=== PATIENT | female | born 1985 | race Two or more races ===

== ENCOUNTER 2017-08-21 20:08 | Inpatient (IN) | payer OTHER ==
[2017-08-21] MEDS ORDERED: ELECTROLYTE-148 SOLN 500 ML IV ONE (20:15)
[2017-08-21] MEDS ORDERED: AMPICILLIN - 2 GM in SODIUM CHLORIDE 100 ML IVPB ONE (20:30)
[2017-08-21 20:39] VITALS: BMI 27.4
[2017-08-21 20:41] LABS: BASOPHIL 0.1 % (0-2.0); MCH 27.2 pg (25.7-33.7); MCHC 33.3 g/dl (32.0-36.0); MEAN CELL VOLUME 81.7 fl (80-96); MEAN PLT VOLUME 11.4 fl (7.5-11.1); NEUTROPHILS 83.7 % (42.8-82.8); PLATELET COUNT 125 K/MM3 (134-434); RDW 14.4 % (11.6-15.6); WHITE BLOOD COUNT 12.5 K/mm3 (4.0-10.0)
[2017-08-21] MEDS ORDERED: TUBERCULIN PPD 5 TU/0.1ML SYRINGE (IN PATIENT USE ONLY) ID ONE (21:00)
[2017-08-21 21:02] LABS: INR 0.94 (0.82-1.09); PROTHROMBIN TIME (PATIENT) 10.6 SEC (9.98-11.88)
[2017-08-21 21:05] LABS: ACTIVATED PTT 26.3 SECONDS (26.9-34.4)
[2017-08-21 21:09] LABS: ANION GAP 12 (8-16); CALCIUM 8.3 mg/dL (8.5-10.1); CO2 22 mmol/L (21-32); CREATININE 0.6 mg/dL (0.55-1.02); GLUCOSE,RANDOM 83 mg/dL (74-106)
[2017-08-21] MEDS ORDERED: FENTANYL/BUPIVACAINE/NS/PF - PCEA - 50 ML DISP.SYRIN EP SCH ×2 (21:10→21:47)
[2017-08-21] MEDS ORDERED: ELECTROLYTE-148 SOLN 1,000 ML IV SCH ×2 (21:15→21:30)
--- NOTE | 2017-08-21 21:46 | HP ---
Past Medical History - Admission Chief Complaint: Pain in labor History of Present Illness: 32 yo @ 39 weeks gestation with prior presents c/o labor pain. She desires . She denies any vaginal bleeding nor ROM. History Source: Patient Limitations to Obtaining History: No Limitations - Past Medical History ...: 2 ...Para: 1 ...Term: 1 ...: 1 ...Spon : 0 ...Induced : 0 ...Multiple Gestation: 0 ...EDC by [facility]: 08/26/17 - Past Surgical History Past Surgical History: Yes: Hx Myomectomy: No Hx Transabdominal Cerclage: No - Smoking History Smoking history: Never smoked Have you smoked in the past 12 months: No Aproximately how many cigarettes per day: 0 - Alcohol/Substance Use Hx Alcohol Use: No History of Substance Use: reports: None - Social History Usual Living Arrangement: Yes: With Spouse History of Recent Travel: No Home Medications - Allergies Allergies/Adverse Reactions: Allergies Allergy/AdvReac Type Severity Reaction Status Date / Time No Known Allergies Allergy Verified 07/01/13 12:33 - Home Medications Home Medications: Ambulatory Orders Vitamins (Sjr) - 1 tab PO DAILY 08/21/17 Family Disease History - Family Disease History Family History: Unremarkable Review of Systems - Review of Systems Constitutional: reports: No Symptoms Eyes: reports: No Symptoms HENT: reports: No Symptoms Neck: reports: No Symptoms Cardiovascular: reports: No Symptoms Respiratory: reports: No Symptoms Gastrointestinal: reports: No Symptoms Genitourinary: reports: Pain Breasts: reports: No Symptoms Reported Musculoskeletal: reports: No Symptoms Integumentary: reports: No Symptoms Neurological: reports: No Symptoms Endocrine: reports: No Symptoms Hematology/Lymphatic: reports: No Symptoms Psychiatric: reports: No Symptoms Pain Intensity: 7 Physical Exam - Maternity Vital Signs: Vital Signs Temperature 97.8 F 08/21/17 20:15 Pulse Rate 77 08/21/17 20:15 Respiratory Rate 20 08/21/17 20:15 Blood Pressure 125/79 08/21/17 20:15 O2 Sat by Pulse Oximetry (%) Constitutional: Yes: Well Nourished Eyes: Yes: Conjunctiva Clear HENT: Yes: Atraumatic Neck: Yes: Supple Cardiovascular: Yes: Regular Rate and Rhythm Lungs: Clear to auscultation Breast(s): Yes: WNL - Abdominal Exam/OB Number of Fetuses: Single Presentation: Vertex Contractions: Yes Regularity: Irregular Intensity: Moderate - Vaginal Exam/OB Vaginal Bleediing: No Speculum Exam: No Dilatation (cm): 2 Effacement (%): 80 Amniotic Membrane Status: Intact Station: -2 - Physical Exam ...Motor Strength: WNL Psychiatric: Yes: Alert, Oriented - Labs Lab Results: CBC, BMP 08/21/17 20:25 08/21/17 20:25 Problem List - Problems (1) Previous section Code(s): Z98.891 - HISTORY OF UTERINE SCAR FROM PREVIOUS SURGERY Assessment/Plan Previous in labor Admit for as requested by patient Epidural anesthesia Anticipate
--- NOTE | 2017-08-21 21:53 | PN ---
Progress Note (short form) - Note Progress Note: Patient is status post epidural anesthesia. She still c/o mild discomfort. FHR : Reassuring [place] : + irregular contractions VE : /-1 AROM ( light Mec ) A/P : Previous in labor Continue monitoring Anticipate Problem List - Problems (1) Previous section Code(s): Z98.891 - HISTORY OF UTERINE SCAR FROM PREVIOUS SURGERY
[2017-08-21 22:27] LABS: HIV 1 & 2 AB NEGATIVE; HIV 1 AGp24 NEGATIVE
[2017-08-22] MEDS: AMPICILLIN - 1 GM in SODIUM CHLORIDE 100 ML IVPB SCH ×3 (00:15→08:40)
[2017-08-22] MEDS: ACETAMINOPHEN 325 MG TABLET (FP) PO PRN ×3 (08:25→23:59)
[2017-08-22] MEDS: IBUPROFEN 600 MG TABLET (FP) PO PRN ×3 (08:25→23:58)
[2017-08-22] MEDS ORDERED: WITCH HAZEL 50% (TUCKS) 40 PAD/JAR PAD TP PRN (09:00)
[2017-08-22] MEDS ORDERED: BISACODYL 10 MG SUPP.RECT RC PRN (09:00)
[2017-08-22] MEDS ORDERED: METHYLERGONOVINE MALEATE 0.2 MG/1 ML AMP IM PRN (09:00)
[2017-08-22] MEDS ORDERED: BENZOCAINE 28 GM HEMORRHOIDAL OINTMENT TP PRN (09:00)
[2017-08-22] MEDS ORDERED: BENZOCAINE 20% 57 GM BOTTLE TP PRN (09:00)
[2017-08-22] MEDS ORDERED: OXYTOCIN 20 UNITS in 0.9% NS 20 UNIT/1,000 ML INFUS.BAG IV SCH (09:15)
--- NOTE | 2017-08-22 09:34 | PN ---
Delivery - Delivery Vaginal Delivery: V-David Type of Anesthesia: Epidural Episiotomy/Laceration: Midline EBL (cc): 300 Delivery, Single - Stages of Labor Date 1st Stage Initiatied: 08/21/17 Time 1st Stage Initiated: 12:00 Date 2nd Stage Initiated: 08/22/17 Time 2nd Stage Initiated: 06:00 Date of Delivery: 08/22/17 Time of Delivery: 07:13 Time Placenta Delivered: 07:15 - Condition of Infant Director Process Improvement/Er Medical Technician Present: Yes Name: Fiona George Gender: Male Weight: 7 lb 11 oz Position: Right, OT Total Hours ROM (Hrs/Mins): 9 hours 45 minutes - 1 Minute Total Score: 9 5 Minutes Total Score: 9 - Feeding Plan Initial Plan: Elected not to breastfeed exclusively throughout hospitalization Remarks - Remarks Remarks: Vaginal after delivery of a live infant boy over midline episiotomy. Nose / Oropharynx suctioned @ perineum. Cord clamped and cut. Placenta expelled spontaneously intact. Episiotomy repaired in layers with 2.0 Chromic and 2.0 Biosyn.
[2017-08-22] MEDS: PRENATAL VITAMINS W/ FOLIC ACID TABLET (FP) PO SCH (10:19)
[2017-08-22] MEDS: SENNOSIDES/DOCUSATE COMBO (SENNA PLUS) TABLET (UD) PO PRN (23:59)
[2017-08-23 08:43] LABS: BASOPHIL 0.2 % (0-2.0); EOSINOPHIL 0.2 % (0-4.5); MCH 26.8 pg (25.7-33.7); MCHC 32.1 g/dl (32.0-36.0); MEAN CELL VOLUME 83.3 fl (80-96); PLATELET COUNT 108 K/MM3 (134-434); RDW 14.8 % (11.6-15.6); WHITE BLOOD COUNT 13.4 K/mm3 (4.0-10.0)
[2017-08-23] MEDS: IBUPROFEN 600 MG TABLET (FP) PO PRN ×3 (08:44→20:46)
[2017-08-23] MEDS: ACETAMINOPHEN 325 MG TABLET (FP) PO PRN ×3 (08:45→20:44)
[2017-08-23] MEDS: PRENATAL VITAMINS W/ FOLIC ACID TABLET (FP) PO SCH (09:57)
[2017-08-23] MEDS ORDERED: FLU VACC QS2017-18 36MOS UP/PF 60 MCG/0.5 ML SYRINGE IM ONE (10:00)
[2017-08-23] MEDS: SENNOSIDES/DOCUSATE COMBO (SENNA PLUS) TABLET (UD) PO PRN (20:44)
--- NOTE | 2017-08-24 06:52 | PN ---
Post Note - Post Date of Delivery: 08/22/17 Vital Signs: Vital Signs - 24 hr 08/23/17 08/23/17 07:30 22:00 Temperature 98.8 F 98.0 F Pulse Rate 84 93 H Respiratory 20 20 Rate Blood Pressure 127/85 124/56 Labs: Laboratory Results - last 24 hr 08/23/17 07:45 WBC 13.4 H RBC 3.19 L D Hgb 8.5 L D Hct 26.6 L D MCV 83.3 MCH 26.8 MCHC 32.1 RDW 14.8 Plt Count 108 L MPV 11.0 Neutrophils % 79.0 Lymphocytes % 15.8 D Monocytes % 4.8 Eosinophils % 0.2 D Basophils % 0.2 - Subjective Subjective: No Complaints - Objective Breast: Not engorged Abdomen: Soft, Non-tender Uterus: Fundus firm, Non-tender Vagina: Scant lochia Extremities: Non-tender - Assessment/Plan (1) Previous section Assessment: S/P Normal Plan: Routine Care
[2017-08-24] MEDS: ACETAMINOPHEN 325 MG TABLET (FP) PO PRN (08:27)
[2017-08-24] MEDS: IBUPROFEN 600 MG TABLET (FP) PO PRN (08:28)
[2017-08-24] MEDS: PRENATAL VITAMINS W/ FOLIC ACID TABLET (FP) PO SCH (09:41)
[2017-08-24 11:49] VITALS: BP 134/80; PULSE 99; TEMP 98.2
== END 2017-08-24 11:15 | disposition home or self-care (01) | DRG 560 ==
LOC: JDEL 20:08 → JLDR 20:15 → J3W 08-22 08:35
PROVIDERS: ADMIT Obstetrics & Gynecology; ATTEND Obstetrics & Gynecology
PROC: 10E0XZZ Delivery of Products of Conception, External Approach (ICD-10-PCS; principal; 2017-08-22)
PROC: 0W8NXZZ Division of Female Perineum, External Approach (ICD-10-PCS; 2017-08-22)
DX: O34.211 Maternal care for low transverse scar from previous cesarean delivery (principal); Z3A.39 39 weeks gestation of pregnancy; Z37.0 Single live birth
CPT/HCPCS: 36415; 59409; 80048; 85025; 85610; 85730; 86593; 86850; 86900; 86901; 87389; 90686

== ENCOUNTER 2018-06-03 17:49 | Inpatient (IN) | payer OTHER ==
[2018-06-03] MEDS ORDERED: SODIUM CHLORIDE 1,000 ML IV STA (19:02)
--- NOTE | 2018-06-03 19:13 | PDOC ---
Attending Attestation - HPI HPI: 06/03/18 19:41 The patient is a 33 year old female with a significant PMH of kidney stones who presents to the emergency department from urgent care with concern for pyelonephritis. The patient reports that she has been experiencing fever, chills , headache and abdominal pain for about 3 days. The patient states that he pain is relieved momentarily with ibuprofen but increases in severity once the medication wears off.she endorses 2 episodes of vomiting last night. The patient denies any other symptoms. She denies any nausea, vomit, diarrhea, constipation or urinary symptoms. She denies any chest pain, shortness of breath , and dizziness. The patient denies any other complaints. PCP: Documentation prepared by Chary Peraza, acting as medical coder for Kassandra Crockett MD. - Physicial Exam PE: 06/03/18 20:53 GENERAL: Awake, alert, and fully oriented, in no acute distress HEAD: No signs of trauma EYES: PERRLA, EOMI, sclera anicteric, conjunctiva clear ENT: Auricles normal inspection, hearing grossly normal, nares patent, oropharynx clear without exudates. Moist mucosa NECK: Normal ROM, supple, no lymphadenopathy, JVD, or masses LUNGS: Breath sounds equal, clear to auscultation bilaterally. No wheezes, and no crackles HEART:(+)afebrile. Regular rhythm, normal S1 and S2, no murmurs, rubs or gallops ABDOMEN:(+)gassy bowel sounds diffusely. Soft, nontender. No guarding, no rebound. No masses EXTREMITIES: Normal range of motion, no edema. No clubbing or cyanosis. No cords, erythema, or tenderness NEUROLOGICAL: Cranial nerves II through XII grossly intact. Normal speech, normal gait SKIN: Warm, Dry, normal turgor, no rashes or lesions noted. <Chary Peraza - Last Filed: 06/03/18 20:53> - Resident Resident Name: Lynda Gandhi - ED Attending Attestation I have performed the following: I have examined & evaluated the patient, The case was reviewed & discussed with the resident, I agree w/resident's findings & plan - Medical Decision Making 06/03/18 19:19 Pt is tachycardic and hypotensive; she will be hydrated and treated with rocephin and admitted for hydroureteronephrosis. PMD is Dr. Garcias; she will be admitted to the hospitalist. 06/03/18 19:42 CBC is normal. 83% neutrophil count. Chem and UA pending. 06/03/18 20:45 Pt's chem demonstrates elevated LFTs. <Kassandra Crockett - Last Filed: 06/03/18 20:57> Heart Score/ECG Review - ECG Intrepretation Rhythm: Regular Rhythm - Patterson Patterson: Normal - P and AR Delta Wave(s) Present: No WPW: No - ST and T Early Repolarization: No Non Specific ST-T Wave changes: No - ECG Impressions Normal ECG: Yes Non-specific ST Elevation: No Ischemic Changes: No Bradycardia: No Tachycardia: Sinus <Kassandra Crockett - Last Filed: 06/03/18 20:57>
[2018-06-03] MEDS ORDERED: KETOROLAC TROMETHAMINE 30 MG/1 ML VIAL IVPUSH ONE (19:17)
[2018-06-03] MEDS ORDERED: CEFTRIAXONE 1,000 MG in DEXTROSE 5%-WATER - 50 ML IVPB ONE (19:17)
--- NOTE | 2018-06-03 19:17 | PDOC ---
History of Present Illness - History of Present Illness Initial Comments: Zahra Kay is an otherwise healthy 33yo woman who presents to the ED today from urgent care with likely right pyelonephritis and b/l kidney stones. Ms Kay reports that starting on Tuesday, she has had shivering chills and b/l , R>L abdominal pain. Initially she assumed that the pain was related to menstrual cramps, and it would resolve with ibuprofen. However, the pain returned every time the ibuprofen started to wear off. She additionally had continued shaking chills. Ms Kay decided to be seen at urgent care as she does not have a PMD at this time. Workup at urgent care included labs pertinent for WBC 9.2 with 84.4% PMNs, AST 98, ALT 168, Cr normal at 0.6. UA with moderate blood, urobilinogen 0.2, nitrite positive, positive leuk esterase. A CT abd/pelvis was remarkable for multiple small b/l non-obstructing renal stones, right kidney swelling with surrounding fat stranding, fluid in the perinephric fat, mild hydroureteronephrosis. The left kidney was noted to have small non-obstructing stones but no other abnormalities. Ms Kay denies any urinary symptoms or changes in bowel habits. She reports two episodes of vomiting since Tuesday but no difficulty taking PO. Her fever was up to 103 at home but would improve with ibuprofen. Otherwise, she has been feeling well prior to Tuesday. <Lynda Gandhi - Last Filed: 06/03/18 20:17> <Kassandra Crockett - Last Filed: 06/03/18 20:23> - General Chief Complaint: Revisit, Lab Variance Stated Complaint: Revisit, Lab Variance Past History - Past Medical History Asthma: No Cancer: No Cardiac Disorders: No COPD: No Diabetes: No HTN: Yes (preeclampsia with 2012 ) Seizures: No Thyroid Disease: No - Suicide/Smoking/Psychosocial Hx Smoking Status: No Smoking History: Never smoked Have you smoked in the past 12 months: No Number of Cigarettes Smoked Daily: 0 Information on smoking cessation initiated: No Hx Alcohol Use: No Drug/Substance Use Hx: No Substance Use Type: None Hx Substance Use Treatment: No <Lynda Gandhi - Last Filed: 06/03/18 20:17> <Kassandra Crockett - Last Filed: 06/03/18 20:23> - Past Medical History Allergies/Adverse Reactions: Allergies Allergy/AdvReac Type Severity Reaction Status Date / Time No Known Allergies Allergy Verified 06/03/18 18:12 Home Medications: Ambulatory Orders NK [No Known Home Medication] 06/03/18 Review of Systems - Review of Systems Comments:: General: +Fevers/chills. No weight or appetite change, no malaise HEENT: No changes in vision, no changes in hearing, no congestion, no sore throat CV: No chest pain, no palpitations, no LE edema Pulm: No SOB, no cough, no wheezing GI: +Vomiting. No change in bowel habits, no melena : See HPI Musc: +b/l back pain (CVA). No joint swelling, no recent injury Skin: No rash, no lesions, no erythema Endo: No excessive thirst, no heat/cold intolerance Heme: No unusual bruising or bleeding, no swollen glands Neuro: No syncope, no numbness/tingling, no focal weakness Vasc: No claudication Psych: No recent change in mood, no SI or HI <Lynda Gandhi - Last Filed: 06/03/18 20:17> *Physical Exam - Vital Signs Last Vital Signs Temp Pulse Resp BP Pulse Ox 98.9 F 118 H 20 96/76 100 06/03/18 18:13 06/03/18 18:13 06/03/18 18:13 06/03/18 18:13 06/03/18 18:13 - Physical Exam Comments: General: Comfortable, no acute distress HEENT: PERRL, EOMI, MMM, voice normal, normal neck ROM, no LAD Cards: Tachycardic. No murmur appreciated Pulm: Comfortable on room air, clear to auscultation bilaterally Abd: Mild low abdominal tenderness. Soft. Nondistended. No rebound or guarding. : B/L mild CVA tenderness, R>L Ext: Atraumatic. No LE edema. ROM intact. Strength 5/5 and equal bilaterally Vasc: Extremities WWP. Palpable radial and pedal pulses bilaterally Neuro: A&Ox3, CN grossly intact, normal speech, motor/sensory grossly intact and symmetric Psych: Mood appropriate to situation <Lynda Gandhi - Last Filed: 06/03/18 20:17> - Vital Signs Last Vital Signs Temp Pulse Resp BP Pulse Ox 98.9 F 118 H 20 96/76 100 06/03/18 18:13 06/03/18 18:13 06/03/18 18:13 06/03/18 18:13 06/03/18 18:13 <CrockettKassandra - Last Filed: 06/03/18 20:23> ED Treatment Course - LABORATORY CBC & Chemistry Diagram: 06/03/18 19:00 06/03/18 19:00 - RADIOLOGY Radiology Studies Ordered: Category Date Time Status CHEST X-RAY PORTABLE* [RAD] Stat Radiology 06/03/18 19:02 Ordered <Lynda Gandhi - Last Filed: 06/03/18 20:17> - LABORATORY CBC & Chemistry Diagram: 06/03/18 19:00 06/03/18 19:00 - ADDITIONAL ORDERS Additional order review: Laboratory Results 06/03/18 06/03/18 06/03/18 19:00 19:00 19:00 Sodium 136 Potassium 3.7 Chloride 100 Carbon Dioxide 25 Anion Gap 11 BUN 7 Creatinine 0.5 L Creat Clearance w eGFR > 60 Random Glucose 99 Lactic Acid 0.9 Calcium 8.4 L Total Bilirubin 0.7 AST 87 H ALT 187 H Alkaline Phosphatase 154 H Total Protein 7.8 Albumin 3.6 Urine Color Urine Appearance Urine pH Ur Specific [place] Urine Protein Urine Glucose (UA) Urine Ketones Urine Blood Urine Nitrite Urine Bilirubin Urine Urobilinogen Ur Leukocyte Esterase Urine WBC (Auto) Urine RBC (Auto) Ur Epithelial Cells Urine Bacteria Hyaline Casts Urine Mucus Urine HCG, Qual Negative 06/03/18 19:00 Sodium Potassium Chloride Carbon Dioxide Anion Gap BUN Creatinine Creat Clearance w eGFR Random Glucose Lactic Acid Calcium Total Bilirubin AST ALT Alkaline Phosphatase Total Protein Albumin Urine Color Anitha Urine Appearance Clear Urine pH 5.0 Ur Specific [place] 1.012 Urine Protein 1+ H Urine Glucose (UA) Negative Urine Ketones 1+ H Urine Blood 2+ H Urine Nitrite Negative Urine Bilirubin Negative Urine Urobilinogen Negative Ur Leukocyte Esterase 1+ H Urine WBC (Auto) 30 Urine RBC (Auto) 12 Ur Epithelial Cells Rare Urine Bacteria Rare Hyaline Casts 5 Urine Mucus Rare Urine HCG, Qual 06/03/18 19:00 RBC 4.54 MCV 82.5 MCHC 33.9 RDW 13.3 D MPV 9.7 D Neutrophils % 83.9 H Lymphocytes % 8.2 D Monocytes % 7.7 Eosinophils % 0.1 Basophils % 0.1 - Medications Given in the ED: ED Medications Discontinued Medications Generic Name Dose Route Start Last Admin Trade Name Charo PRN Reason Stop Dose Admin Al Hydroxide/Mg Hydroxide 30 ml 06/03/18 19:49 06/03/18 19:58 Mylanta Oral Suspension - PO 06/03/18 19:50 30 ml ONCE ONE Administration Sodium Chloride 1,000 mls @ 1,000 mls/hr 06/03/18 19:02 06/03/18 19:18 Normal Saline - IV 06/03/18 20:01 1,000 mls/hr ASDIR STA Administration Ceftriaxone Sodium 1,000 mg/ 50 mls @ 100 mls/hr 06/03/18 19:17 06/03/18 19: 22 Dextrose IVPB 06/03/18 19:46 100 mls/hr ONCE ONE Administration Famotidine/Sodium Chloride 20 mg in 50 mls @ 100 mls/hr 06/03/18 19:52 19:53 Pepcid 20 Mg Premixed Ivpb - IVPB 06/03/18 20:21 100 mls/hr ONCE ONE Administration Ketorolac Tromethamine 30 mg 06/03/18 19:17 06/03/18 19:22 Toradol Injection - IVPUSH 06/03/18 19:18 30 mg ONCE ONE Administration Ondansetron HCl 4 mg 06/03/18 19:49 06/03/18 19:58 Zofran Injection IVPB 06/03/18 19:50 Not Given ONCE ONE <Kassandra Crockett - Last Filed: 06/03/18 20:23> Medical Decision Making - Medical Decision Making 06/03/18 19:49 Zahra Kay is an otherwise healthy 33yo woman who presents from urgent care with 4 days of fever, shaking chills, b/l abdominal and flank pain. She was seen at urgent care where workup included a UA indicaitng likely UTI as well as a CT abd/pelvis that showed b/l nonobstructing kidney stones, right hydrouretonephrosis with perinephric fat stranding and fluid. - Blood cultures, new UA, urine cultures, CBC, CMP sent - No new imaging; Ms Kay brought her CT from earlier today on a disc; needs to be uploaded - IFV, ceftriaxone, toradol ordered - Discussed with hospitalist; will need admission for IV abx Discussed with Dr Crockett. <Lynda Gandhi - Last Filed: 06/03/18 20:17> *DC/Admit/Observation/Transfer - Discharge Dispostion Decision to Admit order: Yes <Lynda Gandhi - Last Filed: 06/03/18 20:17> <Kassandar Crockett - Last Filed: 06/03/18 20:23> Diagnosis at time of Disposition: Pyelonephritis - Referrals Referrals: Jarad Garcias MD [Primary Care Provider] - - Patient Instructions - Post Discharge Activity
[2018-06-03] MEDS ORDERED: KETOROLAC TROMETHAMINE 30 MG/1 ML VIAL ONE (19:19)
[2018-06-03] MEDS ORDERED: CEFTRIAXONE 1 GM/50 ML BAG ONE (19:19)
[2018-06-03 19:27] LABS: BASO % 0.1 % (0-2.0); EOS % 0.1 % (0-4.5); HEMATOCRIT 37.4 % (32.4-45.2); HEMOGLOBIN 12.7 GM/dL (10.7-15.3); LYMPH % 8.2 % (8-40); MCHC 33.9 g/dl (32.0-36.0); MEAN CELL VOLUME 82.5 fl (80-96); MEAN PLT VOLUME 9.7 fl (7.5-11.1); MONO % 7.7 % (3.8-10.2); NEUT % 83.9 % (42.8-82.8); PLATELET COUNT 155 K/MM3 (134-434); RBC 4.54 M/mm3 (3.60-5.2); RDW 13.3 % (11.6-15.6); WHITE BLOOD COUNT 9.1 K/mm3 (4.0-10.0)
[2018-06-03] MEDS ORDERED: MAG HYDROX/AL HYDROX/SIMETH 30 ML UNIT-DOSE CUP PO ONE (19:49)
[2018-06-03] MEDS ORDERED: ONDANSETRON 4 MG/2 ML VIAL IVPB ONE (19:49)
[2018-06-03 19:50] LABS: ALBUMIN 3.6 g/dl (3.4-5.0); ALK PHOS 154 U/L (45-117); ANION GAP 11 MMOL/L (8-16); BILIRUBIN,TOTAL 0.7 mg/dL (0.2-1.0); BLOOD UREA NITROGEN 7 mg/dL (7-18); CALCIUM 8.4 mg/dL (8.5-10.1); CHLORIDE 100 mmol/L (98-107); CO2 25 mmol/L (21-32); CREATININE 0.5 mg/dL (0.55-1.02); GLUCOSE,RANDOM 99 mg/dL (74-106); POTASSIUM 3.7 mmol/L (3.5-5.1); SGOT/AST 87 U/L (15-37); SGPT/ALT 187 U/L (12-78); SODIUM 136 mmol/L (136-145); TOT PROT 7.8 g/dl (6.4-8.2)
[2018-06-03] MEDS ORDERED: FAMOTIDINE 20 MG/50 ML IVPB 20 MG/50 ML MG IVPB ONE ×2 (19:52→20:00)
[2018-06-03] MEDS ORDERED: ONDANSETRON 4 MG/2 ML VIAL ONE (19:53)
[2018-06-03] MEDS ORDERED: MAG HYDROX/AL HYDROX/SIMETH 30 ML UNIT-DOSE CUP ONE (19:53)
[2018-06-03 19:56] LABS: URINE APPEARANCE CLEAR; URINE BILIRUBIN NEGATIVE (<2.0 mg/dL); URINE COLOR AMBER; URINE GLUCOSE (UA) NEGATIVE (NEGATIVE); URINE KETONE 1+ (NEGATIVE); URINE NITRITE NEGATIVE (NEGATIVE); URINE UROBILINOGEN NEGATIVE mg/dL (0.2-1.0)
[2018-06-03 20:03] LABS: URINE LEUK ESTERASE 1+ (NEGATIVE); URINE PROTEIN 1+ (NEGATIVE)
[2018-06-03 20:11] LABS: EPI CELLS RARE /HPF (FEW); URINE BACTERIA RARE /hpf (NONE SEEN); URINE HYALINE CAST 5 /lpf; URINE MUCUS RARE
--- NOTE | 2018-06-03 20:17 | HP ---
CHIEF COMPLAINT: Fever, Chills, Flank Pain, Abdominal Pain, Vomiting PCP: Dr. Jarad Garcias HISTORY OF PRESENT ILLNESS: This is a 33 year old young woman with a PMHx of: Preeclampsia. Who presents to the ED from an Urgent Care Center with fever, chills, flank/abdominal pain x 4 days. Patient reports that the pain started in her flanks and progressed to her lower abdomen which she attributes to menstrual cramping, that had little relief with Ibuprofen and Acetaminophen. Patient reports that her brother who is a physician prescribed Macrodantin for UTI based on symptoms that the patient described. She reports taking only 2 doses without improvement. Workup at urgent care included labs pertinent for WBC 9.2 with 84.4% PMNs, AST 98, ALT 168, Cr normal at 0.6. UA with moderate blood, urobilinogen 0.2, nitrite positive, positive leuk esterase. A CT abd/pelvis was remarkable for multiple small b/l non-obstructing renal stones, right kidney swelling with surrounding fat stranding, fluid in the perinephric fat, mild hydroureteronephrosis. The left kidney was noted to have small non-obstructing stones but no other abnormalities. Patient denies cough, dizziness, SOB, CP, palpitations, diarrhea , constipation. Patient denies hx of renal calculi. ER course was notable for: (1) UA- +2 blood, +1 hoa esterase, +1 ketones, + 1 protein (2) P- 118 (3) Recent Travel: None PAST MEDICAL HISTORY: Preeclampsia PAST SURGICAL HISTORY: C- section x1 x1 Social History: Smoking: Never Alcohol: None Drugs: None Lives with spouse, children Family History: Father: DM, HTN Allergies No Known Allergies Allergy (Verified 06/03/18 18:12) HOME MEDICATIONS: Home Medications Medication Instructions Recorded NK [No Known Home Medication] 06/03/18 REVIEW OF SYSTEMS CONSTITUTIONAL: fever, chills Absent: diaphoresis, generalized weakness, malaise, loss of appetite, weight change HEENT: Absent: rhinorrhea, nasal congestion, throat pain, throat swelling, difficulty swallowing, mouth swelling, ear pain, eye pain, visual changes CARDIOVASCULAR: Absent: chest pain, syncope, palpitations, irregular heart rate, lightheadedness , peripheral edema RESPIRATORY: Absent: cough, shortness of breath, dyspnea with exertion, orthopnea, wheezing, stridor, hemoptysis GASTROINTESTINAL: abdominal pain, nausea, vomiting Absent: abdominal distension, diarrhea, constipation, melena, hematochezia GENITOURINARY: urgency, flank pain Absent: dysuria, frequency, hesitancy, hematuria, genital pain MUSCULOSKELETAL: Absent: myalgia, arthralgia, joint swelling, back pain, neck pain SKIN: Absent: rash, itching, pallor HEMATOLOGIC/IMMUNOLOGIC: Absent: easy bleeding, easy bruising, lymphadenopathy, frequent infections ENDOCRINE: Absent: unexplained weight gain, unexplained weight loss, heat intolerance, cold intolerance NEUROLOGIC: Absent: headache, focal weakness or paresthesias, dizziness, unsteady gait, seizure, mental status changes, bladder or bowel incontinence PSYCHIATRIC: Absent: anxiety, depression, suicidal or homicidal ideation, hallucinations. PHYSICAL EXAMINATION Vital Signs - 24 hr 06/03/18 18:13 Temperature 98.9 F Pulse Rate 118 H Respiratory 20 Rate Blood Pressure 96/76 O2 Sat by Pulse 100 Oximetry (%) GENERAL: Awake, alert, and fully oriented, in no acute distress. HEAD: Normal with no signs of trauma. EYES: Pupils equal, round and reactive to light, extraocular movements intact, sclera anicteric, conjunctiva clear. No lid lag. EARS, NOSE, THROAT: Ears normal, nares patent, oropharynx clear without exudates. Moist mucous membranes. NECK: Normal range of motion, supple without lymphadenopathy, JVD, or masses. LUNGS: Breath sounds equal, clear to auscultation bilaterally. No wheezes, and no crackles. No accessory muscle use. HEART: Regular rate and rhythm, normal S1 and S2 without murmur, rub or gallop. ABDOMEN: Soft, not distended, normoactive bowel sounds, no guarding, no rebound , no masses. No hepatomegaly or splenomegaly. +lower abdominal tenderness MUSCULOSKELETAL: Normal range of motion at all joints. No bony deformities or tenderness. + bilateral CVA tenderness L>R UPPER EXTREMITIES: 2+ pulses, warm, well-perfused. No cyanosis. No clubbing. No peripheral edema. LOWER EXTREMITIES: 2+ pulses, warm, well-perfused. No calf tenderness. No peripheral edema. NEUROLOGICAL: Cranial nerves II-XII intact. Normal speech. Gait not observed. PSYCHIATRIC: Cooperative. Good eye contact. Appropriate mood and affect. SKIN: Warm, dry, normal turgor, no rashes or lesions noted, normal capillary refill. Laboratory Results - last 24 hr 06/03/18 06/03/18 06/03/18 19:00 19:00 19:00 WBC 9.1 RBC 4.54 Hgb 12.7 Hct 37.4 D MCV 82.5 MCH 28.0 MCHC 33.9 RDW 13.3 D Plt Count 155 D MPV 9.7 D Absolute Neuts (auto) 7.6 Neutrophils % 83.9 H Lymphocytes % 8.2 D Monocytes % 7.7 Eosinophils % 0.1 Basophils % 0.1 Nucleated RBC % 0 Sodium 136 Potassium 3.7 Chloride 100 Carbon Dioxide 25 Anion Gap 11 BUN 7 Creatinine 0.5 L Creat Clearance w eGFR > 60 Random Glucose 99 Lactic Acid Calcium 8.4 L Total Bilirubin 0.7 AST 87 H ALT 187 H Alkaline Phosphatase 154 H Total Protein 7.8 Albumin 3.6 Urine Color Anitha Urine Appearance Clear Urine pH 5.0 Ur Specific [place] 1.012 Urine Protein 1+ H Urine Glucose (UA) Negative Urine Ketones 1+ H Urine Blood 2+ H Urine Nitrite Negative Urine Bilirubin Negative Urine Urobilinogen Negative Ur Leukocyte Esterase 1+ H Urine WBC (Auto) 30 Urine RBC (Auto) 12 Ur Epithelial Cells Rare Urine Bacteria Rare Hyaline Casts 5 Urine Mucus Rare Urine HCG, Qual 06/03/18 06/03/18 19:00 19:00 WBC RBC Hgb Hct MCV MCH MCHC RDW Plt Count MPV Absolute Neuts (auto) Neutrophils % Lymphocytes % Monocytes % Eosinophils % Basophils % Nucleated RBC % Sodium Potassium Chloride Carbon Dioxide Anion Gap BUN Creatinine Creat Clearance w eGFR Random Glucose Lactic Acid 0.9 Calcium Total Bilirubin AST ALT Alkaline Phosphatase Total Protein Albumin Urine Color Urine Appearance Urine pH Ur Specific [place] Urine Protein Urine Glucose (UA) Urine Ketones Urine Blood Urine Nitrite Urine Bilirubin Urine Urobilinogen Ur Leukocyte Esterase Urine WBC (Auto) Urine RBC (Auto) Ur Epithelial Cells Urine Bacteria Hyaline Casts Urine Mucus Urine HCG, Qual Negative ASSESSMENT/PLAN: 33 y/o woman with PMHx of Preeclampsia. Admitted for Acute Pyelonephritis for evaluation of their emergent condition. Plan: FEN D51/2NS@100ml/hr Replete lytes prn NPO DVT ppx OOB SCDs Code Status: Full Code Dispo: Requires Inpatient Care Problem List - Problem (1) Pyelonephritis Assessment/Plan: - CTAP 06/03 at urgent care- multiple small bilateral non-obstructing renal stones , mild hydroureteronephrosis - UA- +2 blood, +1 hoa esterase, +1 ketones - No leukocytosis - Ceftriaxone started in ED, will continue until culture report - Urine culture-pending - Appreciate Urology consult -Will continue IVF - Monitor CBC, BMP - Monitor vitals - Tylenol prn - Toradol prn pain - Strain urine Code(s): N12 - TUBULO-INTERSTITIAL NEPHRITIS, NOT SPCF ACUTE OR CHRONIC (2) Abdominal pain Assessment/Plan: - See above Code(s): R10.9 - UNSPECIFIED ABDOMINAL PAIN Visit type - Emergency Visit Emergency Visit: Yes ED Registration Date: 06/03/18 Care time: The patient presented to the Emergency Department on the above date and was hospitalized for further evaluation of their emergent condition. - New Patient This patient is new to me today: Yes Date on this admission: 06/03/18 - Critical Care Critical Care patient: No Hospitalist Screening - Colonoscopy Questionnaire Colonoscopy Questionnaire: Colonoscopy Questionnaire - Patient: 50 - 75 years old and never had a screening colonoscopy: No History of colon or rectal polyps, or CA: No History of IBD, Crohn's disease or UC: No History of abdominal radiation therapy as a child: No - Relative: 1 with colon or rectal CA, or polyps at age 60 or younger: No Colon or rectal CA diagnosed at age 45 or younger: No Multiple relatives with colon or rectal CA: No - Outcome: Screening Result: Negative Screen
[2018-06-03] MEDS ORDERED: ONDANSETRON 4 MG/2 ML VIAL IVPUSH PRN (20:28)
[2018-06-03] MEDS: DEXTROSE 5%-0.45% SALINE 1,000 ML IV SCH (21:00)
[2018-06-03] MEDS ORDERED: ACETAMINOPHEN 325 MG TABLET (FP) PO ONE (21:51)
[2018-06-03] MEDS ORDERED: ACETAMINOPHEN 325 MG TABLET (FP) ONE (21:53)
[2018-06-03 23:47] VITALS: BMI 22.8
[2018-06-04] MEDS ORDERED: KETOROLAC TROMETHAMINE 15 MG/ML VIAL IVPUSH ONE (01:00)
[2018-06-04] MEDS ORDERED: MELATONIN 5 MG TABLETS PO ONE (01:00)
[2018-06-04] MEDS: DEXTROSE 5%-0.45% SALINE 1,000 ML IV SCH (04:25)
[2018-06-04 06:49] LABS: BASO % 0.1 % (0-2.0); HEMATOCRIT 30.3 % (32.4-45.2); HEMOGLOBIN 10.3 GM/dL (10.7-15.3); LYMPH % 9.2 % (8-40); MCH 27.8 pg (25.7-33.7); MCHC 33.9 g/dl (32.0-36.0); MEAN CELL VOLUME 82.2 fl (80-96); MEAN PLT VOLUME 9.8 fl (7.5-11.1); MONO % 10.5 % (3.8-10.2); NEUT % 80.2 % (42.8-82.8); PLATELET COUNT 102 K/MM3 (134-434); RBC 3.69 M/mm3 (3.60-5.2); RDW 13.3 % (11.6-15.6); WHITE BLOOD COUNT 4.6 K/mm3 (4.0-10.0)
[2018-06-04 07:23] LABS: ANION GAP 9 MMOL/L (8-16); BLOOD UREA NITROGEN 6 mg/dL (7-18); CALCIUM 7.7 mg/dL (8.5-10.1); CHLORIDE 105 mmol/L (98-107); CO2 25 mmol/L (21-32); CREATININE 0.5 mg/dL (0.55-1.02); GLUCOSE,RANDOM 137 mg/dL (74-106); POTASSIUM 3.3 mmol/L (3.5-5.1); SODIUM 139 mmol/L (136-145)
[2018-06-04] MEDS ORDERED: KETOROLAC TROMETHAMINE 15 MG/ML VIAL IVPUSH PRN (08:52)
[2018-06-04] MEDS ORDERED: MORPHINE SULFATE 2 MG/ML VIAL IM ONE (08:55)
[2018-06-04] MEDS ORDERED: DEXTROSE 5%-WATER - 50 ML IVPB ONE (09:17)
[2018-06-04] MEDS ORDERED: cefTRIAXone SODIUM 1 GM VIAL ONE (09:17)
[2018-06-04] MEDS: CEFTRIAXONE 1 GM in DEXTROSE 5%-WATER - 50 ML IVPB SCH (10:33)
--- NOTE | 2018-06-04 10:57 | PN ---
Progress Note, Physician Chief Complaint: pyelonephritis History of Present Illness: C/o right sided abdominal pain - Current Medication List Current Medications: Active Medications Ceftriaxone Sodium 1 gm/ (Dextrose) 50 mls @ 100 mls/hr IVPB DAILY [facility]; Protocol Last Admin: 06/04/18 10:33 Dose: 100 mls/hr Dextrose/Sodium Chloride (Dextrose 5%-Normal Saline+40 Meq Kcl -) 40 meq in 1, 000 mls @ 75 mls/hr IV ASDIR [facility] Potassium Chloride (Potassium Chloride 10 Meq Premix Ivpb -) 10 meq in 100 mls @ 100 mls/hr IVPB Q60M [facility] Stop: 06/04/18 13:44 Ketorolac Tromethamine (Toradol Injection -) 15 mg IVPUSH Q6H PRN PRN Reason: PAIN LEVEL 7 - 10 Stop: 06/09/18 08:51 Last Admin: 06/04/18 08:59 Dose: 15 mg Ondansetron HCl (Zofran Injection) 4 mg IVPUSH Q6H PRN PRN Reason: NAUSEA - Objective Vital Signs: Vital Signs Temperature 100.0 F H 06/04/18 08:32 Pulse Rate 112 H 06/04/18 08:32 Respiratory Rate 20 06/04/18 08:32 Blood Pressure 121/77 06/04/18 08:32 O2 Sat by Pulse Oximetry (%) 100 06/04/18 06:00 Constitutional: Yes: Well Nourished, No Distress, Calm Cardiovascular: Yes: Regular Rate and Rhythm Respiratory: Yes: Regular Gastrointestinal: Yes: Normal Bowel Sounds, Soft Genitourinary: Yes: CVA Tenderness - Right Musculoskeletal: Yes: WNL Extremities: Yes: WNL Edema: No Peripheral Pulses WNL: Yes Neurological: Yes: Alert, Oriented Psychiatric: Yes: Alert, Oriented Labs: CBC, BMP 06/04/18 06:30 06/04/18 06:30 Problem List - Problems (1) Pyelonephritis Assessment/Plan: -IV abx -Urology consult -ID consult -UA/UC pending Code(s): N12 - TUBULO-INTERSTITIAL NEPHRITIS, NOT SPCF ACUTE OR CHRONIC (2) Hypokalemia Assessment/Plan: -Change IVF D5+NS+KCl 20 meq @ 75 cc/hr Code(s): E87.6 - HYPOKALEMIA (3) Elevated liver enzymes Assessment/Plan: GI consult -likely 2/2 to increased usage of NSAID's and acetaminophen in past 4 days due to pain -Avoid NSAIDS -CT abd/pelvis unremarkable for any liver disease -monitor trend Code(s): R74.8 - ABNORMAL LEVELS OF OTHER SERUM ENZYMES Assessment/Plan see problem list
[2018-06-04] MEDS: KCL 10 MEQ IVPB 10 MEQ/100 ML INFUS.BAG IVPB SCH ×3 (11:09→15:26)
[2018-06-04] MEDS: D5-NS + 40 MEQ KCL - 40 MEQ/1,000 ML INFUS.BAG IV SCH (11:09)
[2018-06-04] MEDS ORDERED: morphine SULFATE 4 MG/ML VIAL IVPUSH PRN (11:22)
[2018-06-04] MEDS ORDERED: MORPHINE SULFATE 2 MG/ML VIAL IVPUSH PRN (11:22)
--- NOTE | 2018-06-04 12:01 | CON.GI ---
Consult Consult Specialty:: GI Referred by:: Alondra Teague NP Reason for Consultation:: abnl liver chemistries - History of Present Illness Chief Complaint: 33 y.o. woman with history of recurrent UTIs, presents with r. pyelonephritis and noted to have elevated alk phos, AST, ALT. Pt born in [facility], not tested to her knowledge for hepatitis B. Says she has had normal liver chemistries in the past. She took 2 Macrodantin before coming to hospital. - History Source History Provided By: Patient Limitations to Obtaining History: No Limitations - Past Surgical History Past Surgical History: Yes: - Alcohol/Substance Use Hx Alcohol Use: No History of Substance Use: reports: None - Smoking History Smoking history: Never smoked Have you smoked in the past 12 months: No Aproximately how many cigarettes per day: 0 - Social History History of Recent Travel: No Home Medications - Allergies Allergies/Adverse Reactions: Allergies Allergy/AdvReac Type Severity Reaction Status Date / Time No Known Allergies Allergy Verified 06/03/18 18:12 - Home Medications Home Medications: Ambulatory Orders NK [No Known Home Medication] 06/03/18 Physical Exam-GI Vital Signs: Vital Signs Temperature 100.0 F H 06/04/18 08:32 Pulse Rate 112 H 06/04/18 08:32 Respiratory Rate 20 06/04/18 08:32 Blood Pressure 121/77 06/04/18 08:32 O2 Sat by Pulse Oximetry (%) 100 06/04/18 06:00 Labs: CBC, BMP 06/04/18 06:30 06/04/18 06:30 Imaging - Results Cat Scan: Report Reviewed (outside CT report => perinephric stranding, no obstructing ureteral calculus) Problem List - Problems (1) Elevated liver enzymes Assessment/Plan: Possibilities include: 1) nitrifurantoin toxicity. Nitrofurantoin has been implicated in a wide spectrum of liver disease, from acute hepatitis, to immune-mediated hepatitis, to cirrhosis. 2) possible hepatitis B or C. Pt is [place], has never received blood transfusion but has never been tested for chronic viral hepatitis. 3) Lee disease, autoimmune hepatitis, [id number] deficiency. I will order serologic testing for chronic hepatitis including viral. All the results are unlikely to come back while the patient is an inpatient and I have told her that she needs outpatient follow-up. The hospital system will not allow ordering of some of the tests for chronic liver disease on inpatients (ceruloplasmin, mitochrondrial antibody). These tests can be obtained as an outpatient if Ms Kay follows up. Code(s): R74.8 - ABNORMAL LEVELS OF OTHER SERUM ENZYMES (2) Hypokalemia Code(s): E87.6 - HYPOKALEMIA
[2018-06-04] MEDS: ACETAMINOPHEN 1000 MG/100 ML VIAL (NON FORMULARY) IVPB PRN ×2 (13:16→22:49)
[2018-06-04] MEDS ORDERED: PT OWN MED DRAWER 7, Y5N ONE ×2 (13:26→15:17)
--- NOTE | 2018-06-04 15:19 | PN ---
Progress Note (short form) - Note Progress Note: ID Consult dictated R/O pyelonephritis Await c/s Continue ceftriaxone consult
[2018-06-05 06:10] LABS: SERUM IRON SATURATION 4 % (15-55); TOTAL IRON BINDING CAPACITY 225 ug/dL (250-450); UIBC 215 ug/dL (131-425)
[2018-06-05] MEDS: D5-NS + 40 MEQ KCL - 40 MEQ/1,000 ML INFUS.BAG IV SCH ×3 (06:27→21:11)
[2018-06-05] MEDS: ACETAMINOPHEN 1000 MG/100 ML VIAL (NON FORMULARY) IVPB PRN (07:06)
[2018-06-05 08:21] LABS: BASO % 0.2 % (0-2.0); EOS % 0.1 % (0-4.5); HEMATOCRIT 29.7 % (32.4-45.2); LYMPH % 21.1 % (8-40); MCH 27.8 pg (25.7-33.7); MCHC 33.7 g/dl (32.0-36.0); MEAN CELL VOLUME 82.5 fl (80-96); MEAN PLT VOLUME 9.6 fl (7.5-11.1); MONO % 11.8 % (3.8-10.2); NEUT % 66.8 % (42.8-82.8); PLATELET COUNT 118 K/MM3 (134-434); RDW 13.6 % (11.6-15.6); WHITE BLOOD COUNT 2.4 K/mm3 (4.0-10.0)
[2018-06-05 08:59] LABS: CHLORIDE 104 mmol/L (98-107); SODIUM 137 mmol/L (136-145)
[2018-06-05 09:06] LABS: ALBUMIN 2.8 g/dl (3.4-5.0); ALK PHOS 109 U/L (45-117); ANION GAP 8 MMOL/L (8-16); BILIRUBIN,DIRECT < 0.2 mg/dL (0.0-0.2); BILIRUBIN,TOTAL 0.3 mg/dL (0.2-1.0); BLOOD UREA NITROGEN 5 mg/dL (7-18); CALCIUM 8.1 mg/dL (8.5-10.1); CO2 25 mmol/L (21-32); CREATININE 0.4 mg/dL (0.55-1.02); GLUCOSE,RANDOM 110 mg/dL (74-106); SGOT/AST 46 U/L (15-37); SGPT/ALT 101 U/L (12-78); TOT PROT 6.4 g/dl (6.4-8.2)
[2018-06-05] MEDS ORDERED: DEXTROSE 5%-WATER - 50 ML IVPB ONE (10:09)
[2018-06-05] MEDS ORDERED: cefTRIAXone SODIUM 1 GM VIAL ONE (10:09)
[2018-06-05] MEDS: CEFTRIAXONE 1 GM in DEXTROSE 5%-WATER - 50 ML IVPB SCH (10:17)
--- NOTE | 2018-06-05 11:10 | PN ---
Progress Note (short form) - Note Progress Note: Pt feeling much better today. LFTs improved but still abnormal. Pt is mildly pancytopenic. CBC,CMP WBC 2.4 K/mm3 (4.0-10.0) L 06/05/18 07:45 RBC 3.60 M/mm3 (3.60-5.2) 06/05/18 07:45 Hgb 10.0 GM/dL (10.7-15.3) L 06/05/18 07:45 Hct 29.7 % (32.4-45.2) L 06/05/18 07:45 MCV 82.5 fl (80-96) 06/05/18 07:45 MCH 27.8 pg (25.7-33.7) 06/05/18 07:45 MCHC 33.7 g/dl (32.0-36.0) 06/05/18 07:45 RDW 13.6 % (11.6-15.6) 06/05/18 07:45 Plt Count 118 K/MM3 (134-434) L 06/05/18 07:45 MPV 9.6 fl (7.5-11.1) 06/05/18 07:45 Absolute Neuts (auto) 1.6 K/mm3 (1.5-8.0) 06/05/18 07:45 Neutrophils % 66.8 % (42.8-82.8) 06/05/18 07:45 Lymphocytes % 21.1 % (8-40) D 06/05/18 07:45 Monocytes % 11.8 % (3.8-10.2) H 06/05/18 07:45 Eosinophils % 0.1 % (0-4.5) D 06/05/18 07:45 Basophils % 0.2 % (0-2.0) 06/05/18 07:45 Nucleated RBC % 0 % (0-0) 06/05/18 07:45 Sodium 137 mmol/L (136-145) 06/05/18 07:45 Potassium 4.0 mmol/L (3.5-5.1) 06/05/18 07:45 Chloride 104 mmol/L (98-107) 06/05/18 07:45 Carbon Dioxide 25 mmol/L (21-32) 06/05/18 07:45 Anion Gap 8 MMOL/L (8-16) 06/05/18 07:45 BUN 5 mg/dL (7-18) L 06/05/18 07:45 Creatinine 0.4 mg/dL (0.55-1.02) L 06/05/18 07:45 Creat Clearance w eGFR > 60 (>60) 06/05/18 07:45 Random Glucose 110 mg/dL (74-106) H 06/05/18 07:45 Lactic Acid 0.9 mmol/L (0.0-2.0) 06/03/18 19:00 Calcium 8.1 mg/dL (8.5-10.1) L 06/05/18 07:45 Iron 10 ug/dL (27-159) L 06/04/18 06:42 TIBC 225 ug/dL (250-450) L 06/04/18 06:42 Iron Saturation 4 % (15-55) L 06/04/18 06:42 Ferritin Cancelled 06/04/18 06:42 Total Bilirubin 0.3 mg/dL (0.2-1.0) 06/05/18 07:45 Direct Bilirubin < 0.2 mg/dL (0.0-0.2) 06/05/18 07:45 AST 46 U/L (15-37) H 06/05/18 07:45 ALT 101 U/L (12-78) H 06/05/18 07:45 Alkaline Phosphatase 109 U/L (45-117) D 06/05/18 07:45 Total Protein 6.4 g/dl (6.4-8.2) 06/05/18 07:45 Albumin 2.8 g/dl (3.4-5.0) L 06/05/18 07:45 Vitamin B12 Cancelled 06/04/18 06:42 TSH Cancelled 06/04/18 06:42 Free T4 Cancelled 06/04/18 06:42 Serologic testing for liver disease (BEBO, HBV and HCV serologies) pending. Further testing will need to be done as outpatient if liver chemistries remain abnormal. I explained this to the patient and her . Problem List - Problems (1) Elevated liver enzymes Code(s): R74.8 - ABNORMAL LEVELS OF OTHER SERUM ENZYMES (2) Hypokalemia Code(s): E87.6 - HYPOKALEMIA
--- NOTE | 2018-06-05 13:43 | EKG ---
Test Reason : Blood Pressure : / mmHG Vent. Rate : 109 BPM Atrial Rate : 109 BPM P-R Int : 140 ms QRS Dur : 084 ms QT Int : 330 ms P-R-T Axes : 049 070 051 degrees QTc Int : 444 ms SINUS TACHYCARDIA POSSIBLE LEFT ATRIAL ENLARGEMENT BORDERLINE ECG NO PREVIOUS ECGS AVAILABLE Confirmed by SHUBHAM PENA MD ([id number]) on 06/05/2018 1:43:19 PM Referred By: Confirmed By:SHUBHAM PENA MD
[2018-06-05] MEDS ORDERED: IBUPROFEN 400 MG TABLET (FP) PO ONE (15:00)
[2018-06-05] MEDS ORDERED: ACETAMINOPHEN 325 MG TABLET (FP) PO PRN (15:04)
--- NOTE | 2018-06-05 16:09 | PN ---
Progress Note (short form) - Note Progress Note: feels improved still febrile this am eating now no more flank pain still some headache Vital Signs Period Temp Pulse Resp BP Sys/Mccarty Pulse Ox Last 24 Hr 98.2 F-102.5 F 76-107 18-20 104-114/66-74 99-99 cor-rrr lungs clear abd soft,nt trace cvat ext no edema CBC, BMP 06/05/18 07:45 06/05/18 07:45 Laboratory Tests 06/03/18 06/05/18 19:00 07:45 AST 87 H 46 H ALT 187 H 101 H Alkaline Phosphatase 154 H 109 D Total Protein 7.8 6.4 Albumin 3.6 2.8 L Microbiology 06/03/18 19:00 Urine - Urine Clean Catch Urine Culture - Final 06/03/18 19:00 Blood - Peripheral Venous Blood Culture - Preliminary NO GROWTH OBTAINED AFTER 24 HOURS, INCUBATION TO CONTINUE FOR 4 DAYS. 06/03/18 19:00 Blood - Peripheral Venous Blood Culture - Preliminary NO GROWTH OBTAINED AFTER 24 HOURS, INCUBATION TO CONTINUE FOR 4 DAYS. a/p right pyelonephritis continue rocephin f/u labs and cultures in am repeat cbc lfts trending down the macrobid she took prior to admission may have sterilized her urine
--- NOTE | 2018-06-05 20:43 | PN ---
Progress Note, Physician - Current Medication List Current Medications: Active Medications Acetaminophen (Tylenol -) 650 mg PO Q6H PRN PRN Reason: TEMP/HEADACHE Heparin Sodium (Porcine) (Heparin -) 5,000 unit SQ BID [facility] Ceftriaxone Sodium 1 gm/ (Dextrose) 50 mls @ 100 mls/hr IVPB DAILY [facility]; Protocol Last Admin: 06/05/18 10:17 Dose: 100 mls/hr Dextrose/Sodium Chloride (Dextrose 5%-Normal Saline+40 Meq Kcl -) 40 meq in 1, 000 mls @ 75 mls/hr IV ASDIR [facility] Last Admin: 06/05/18 06:27 Dose: 75 mls/hr Ketorolac Tromethamine (Toradol Injection -) 15 mg IVPUSH Q6H PRN PRN Reason: PAIN LEVEL 7 - 10 Stop: 06/09/18 08:51 Last Admin: 06/04/18 08:59 Dose: 15 mg Morphine Sulfate (Morphine Sulfate) 2 mg IVPUSH Q4H PRN PRN Reason: PAIN LEVEL 4 - 6 Morphine Sulfate (Morphine Sulfate) 4 mg IVPUSH Q6H PRN PRN Reason: PAIN LEVEL 7 - 10 Last Admin: 06/04/18 21:31 Dose: 4 mg Ondansetron HCl (Zofran Injection) 4 mg IVPUSH Q6H PRN PRN Reason: NAUSEA - Objective Vital Signs: Vital Signs Temperature 98.9 F 06/05/18 15:34 Pulse Rate 98 H 06/05/18 15:34 Respiratory Rate 18 06/05/18 15:34 Blood Pressure 104/66 06/05/18 15:34 O2 Sat by Pulse Oximetry (%) 99 06/05/18 06:00 Labs: CBC, BMP 06/05/18 07:45 06/05/18 07:45 Problem List - Problems (1) Pyelonephritis Assessment/Plan: -IV abx -Urology consult -ID consult -UA/UC pending -Change IVF D5+NS+KCl 20 meq @ 75 cc/hr -CT SCAN IF NOT DONE Code(s): N12 - TUBULO-INTERSTITIAL NEPHRITIS, NOT SPCF ACUTE OR CHRONIC (2) Abdominal pain Code(s): R10.9 - UNSPECIFIED ABDOMINAL PAIN (3) Elevated liver enzymes Assessment/Plan: -GI consult NOTED -likely 2/2 to increased usage of NSAID's and acetaminophen in past 4 days due to pain -Avoid NSAIDS -CHECK CT abd/pelvis -monitor trend Code(s): R74.8 - ABNORMAL LEVELS OF OTHER SERUM ENZYMES (4) Headache Assessment/Plan: -CT OF HEAD Code(s): R51 - HEADACHE
[2018-06-05] MEDS: HEPARIN NA (PORCINE) 5,000 UNITS/ML 1ML VIAL SQ SCH (21:00)
[2018-06-06 06:48] LABS: BASO % 0.4 % (0-2.0); EOS % 0.5 % (0-4.5); HEMATOCRIT 30.5 % (32.4-45.2); HEMOGLOBIN 10.1 GM/dL (10.7-15.3); LYMPH % 39.4 % (8-40); MCH 27.6 pg (25.7-33.7); MCHC 33.1 g/dl (32.0-36.0); MEAN CELL VOLUME 83.2 fl (80-96); MEAN PLT VOLUME 9.3 fl (7.5-11.1); MONO % 15.3 % (3.8-10.2); NEUT % 44.4 % (42.8-82.8); PLATELET COUNT 150 K/MM3 (134-434); RBC 3.67 M/mm3 (3.60-5.2); RDW 13.9 % (11.6-15.6); WHITE BLOOD COUNT 2.6 K/mm3 (4.0-10.0)
[2018-06-06 07:17] LABS: CHLORIDE 106 mmol/L (98-107); POTASSIUM 4.5 mmol/L (3.5-5.1); SODIUM 140 mmol/L (136-145)
[2018-06-06 07:28] LABS: ALBUMIN 2.7 g/dl (3.4-5.0); ALK PHOS 124 U/L (45-117); ANION GAP 7 MMOL/L (8-16); BILIRUBIN,TOTAL 0.3 mg/dL (0.2-1.0); BLOOD UREA NITROGEN 6 mg/dL (7-18); CALCIUM 8.1 mg/dL (8.5-10.1); CO2 27 mmol/L (21-32); CREATININE 0.5 mg/dL (0.55-1.02); GLUCOSE,RANDOM 112 mg/dL (74-106); SGOT/AST 94 U/L (15-37); SGPT/ALT 140 U/L (12-78); TOT PROT 6.5 g/dl (6.4-8.2)
[2018-06-06] MEDS ORDERED: DEXTROSE 5%-WATER - 50 ML IVPB ONE (09:45)
[2018-06-06] MEDS ORDERED: cefTRIAXone SODIUM 1 GM VIAL ONE (09:45)
[2018-06-06] MEDS: HEPARIN NA (PORCINE) 5,000 UNITS/ML 1ML VIAL SQ SCH (10:00)
[2018-06-06] MEDS: CEFTRIAXONE 1 GM in DEXTROSE 5%-WATER - 50 ML IVPB SCH (10:00)
[2018-06-06] MEDS ORDERED: IRON SUCROSE INJECTION 100 MG in SODIUM CHLORIDE 95 ML IVPB ONE (10:30)
[2018-06-06] MEDS ORDERED: IBUPROFEN 400 MG TABLET (FP) PO ONE (11:00)
--- NOTE | 2018-06-06 11:09 | DS ---
Physical Examination Vital Signs: Vital Signs Temperature 98.1 F 06/06/18 09:59 Pulse Rate 94 H 06/06/18 09:59 Respiratory Rate 17 06/06/18 09:59 Blood Pressure 120/88 06/06/18 09:59 O2 Sat by Pulse Oximetry (%) 99 06/05/18 21:00 no more flank pain' no fever cannot sleep in hospital and has a headache bc lack of sleep refusing CT of head and abdomen = as she has had ct scan at urgent care center prior to admission got iv rocephin now will change to ceftin Constitutional: Yes: Calm Cardiovascular: Yes: Regular Rate and Rhythm, S1, S2 Respiratory: Yes: CTA Bilaterally Gastrointestinal: Yes: Normal Bowel Sounds, Soft Edema: No Labs: CBC, BMP 06/06/18 06:30 06/06/18 06:30 Discharge Summary Reason For Visit: PYELONEPHRITIS Current Active Problems Abdominal pain (Acute) Elevated liver enzymes (Acute) Headache (Acute) Hypokalemia (Acute) Pyelonephritis (Acute) Hospital Course: CHIEF COMPLAINT: Fever, Chills, Flank Pain, Abdominal Pain, Vomiting PCP: Dr. Jarad Garcias HISTORY OF PRESENT ILLNESS: This is a 33 year old young woman with a PMHx of: Preeclampsia. Who presents to the ED from an Urgent Care Center with fever, chills, flank/abdominal pain x 4 days. Patient reports that the pain started in her flanks and progressed to her lower abdomen which she attributes to menstrual cramping, that had little relief with Ibuprofen and Acetaminophen. Patient reports that her brother who is a physician prescribed Macrodantin for UTI based on symptoms that the patient described. She reports taking only 2 doses without improvement. Workup at urgent care included labs pertinent for WBC 9.2 with 84.4% PMNs, AST 98, ALT 168, Cr normal at 0.6. UA with moderate blood, urobilinogen 0.2, nitrite positive, positive leuk esterase. A CT abd/pelvis was remarkable for multiple small b/l non-obstructing renal stones, right kidney swelling with surrounding fat stranding, fluid in the perinephric fat, mild hydroureteronephrosis. The left kidney was noted to have small non-obstructing stones but no other abnormalities. Patient denies cough, dizziness, SOB, CP, palpitations, diarrhea , constipation. Patient denies hx of renal calculi. ER course was notable for: (1) UA- +2 blood, +1 hoa esterase, +1 ketones, + 1 protein (2) P- 118 (3) hospital course: iv rocephin to ceftin afebrile cva tenderenss improved LFT trending down seen by GI needs work up as outpatient low iron stores with anemia iv venofer Condition: Improved - Instructions Diet, Activity, Other Instructions: ceftin 500mg po bid for 1 week FU with PMD in one week repeat blood work cbc and liver function test Referrals: Jarad Garcias MD [Primary Care Provider] - Jono Mason MD [Staff Physician] - 2 Weeks (increase liver function test follow up) Disposition: HOME - Home Medications Comprehensive Discharge Medication List: Ambulatory Orders NK [No Known Home Medication] 06/03/18
--- NOTE | 2018-06-06 12:26 | CONSULT ---
Consult - text type - Consultation Consultation Note: 33 yo female w b/l stones initially presented w right hydro/colic Pt now afebrile min discomfort believes has not passed ureteral stone Pt will follow p d/c for definitive care
[2018-06-06 14:12] LABS: HBsAG SCREEN Negative (Negative)
[2018-06-06 14:32] VITALS: BP 118/75; PULSE 81; TEMP 98.4
[2018-06-06] MEDS: D5-NS + 40 MEQ KCL - 40 MEQ/1,000 ML INFUS.BAG IV SCH (14:34)
== END 2018-06-06 14:31 | disposition home or self-care (01) | DRG 690 ==
LOC: JER 17:49 → JERBED 20:18 → J5S 23:02
PROVIDERS: ADMIT Internal Medicine; ATTEND Family Medicine
DX: N10 Acute pyelonephritis (principal); N13.2 Hydronephrosis with renal and ureteral calculous obstruction; R10.9 Unspecified abdominal pain; R51 Headache; E87.6 Hypokalemia; R74.8 Abnormal levels of other serum enzymes
CPT/HCPCS: 36415; 71045-TC-FY; 80048; 80053; 81003; 81015; 82248; 82607; 82728; 83516; 83540; 83550; 83605; 84439; 84443; 84703; 85025; 86038; 86803; 87040; 87086; 87340; 93005; 93010; 99284-25; J0131; J1644; J1756; J7030